=== PATIENT | male | born 1955 | race Caucasian/White ===

== ENCOUNTER 2016-12-01 09:31 | Emergency (ER) | payer BC, OTHER ==
--- NOTE | 2016-12-01 11:10 | ED Physician Documentation ---
History of Present Illness - Stated complaint Stated Complaint: RT KNEE PAIN - Chief complaint Chief Complaint: Ext Problem - History obtained from History obtained from: Patient - History of Present Illness Timing: How many weeks ago (3) - Additonal information Additional information: 61 y/o male with increased pain in his right knee over the past 3 weeks. He had an injection done [facility] about 2 weeks ago and the pain is now worse. He feels like the injection did not work. He feels that he never got relief. He is having much worse pain than usual and cannot bear weight. Review of Systems Constitutional: denies: Fever, Chills, Myalgias, Fatigue, Sweats Eyes: denies: Decreased vision Ears: denies: Ear pain Nose: denies: Congestion Throat: denies: Sore throat Cardiac: denies: Chest pain / pressure Respiratory: denies: Cough GI: denies: Vomiting : denies: Dysuria, Frequency Skin: denies: Rash Musculoskeletal: reports: Joint pain, Pain with weight bearing. denies: Neck pain, Back pain, Extremity pain Neurologic: denies: Generalized weakness, Focal weakness, Numbness PD PAST MEDICAL HISTORY - Present Medications Home Medications: Ambulatory Orders Medication Instructions Recorded Confirmed Aspirin 81 mg PO DAILY 12/01/16 12/01/16 Atorvastatin [Lipitor] 40 mg PO DAILY 12/01/16 12/01/16 Clopidogrel [Plavix] 75 mg PO DAILY 12/01/16 12/01/16 HYDROcod/ACETAM 5/325 [Renwick 5/325] 1 - 2 ea PO Q6H PRN #15 tablet 12/01/16 Hydrochlorothiazide 25 mg PO DAILY 12/01/16 12/01/16 Isosorbide Mononitrate [Isosorbide 60 mg PO DAILY 12/01/16 12/01/16 Mononitrate ER] Lisinopril 10 mg PO DAILY 12/01/16 12/01/16 Metoprolol Tartrate 100 mg PO DAILY 12/01/16 12/01/16 Nitroglycerin 0.4 12/01/16 Ranolazine [Ranexa] 1,000 mg PO BID 12/01/16 12/01/16 amLODIPine [Norvasc] 2.5 mg PO DAILY 12/01/16 12/01/16 - Allergies Allergies/Adverse Reactions: Allergies Allergy/AdvReac Type Severity Reaction Status Date / Time Tetanus Vaccines and Toxoid Allergy Unknown Verified 12/01/16 09:44 PD ED PE NORMAL - Vitals Vital signs reviewed: Yes (hypertensive) - General General: Alert and oriented X 3, No acute distress, Well developed/nourished - HEENT HEENT: Atraumatic, PERRL - Respiratory Respiratory: No respiratory distress - Derm Derm: Normal color, Warm and dry, No rash - Extremities Extremities: No deformity, No edema, Other (There is a small palpable effusion to the right knee. There is pain to moving the knee through a ROM. The ligaments are stable to testing and the distal N/V is intact. ) - Neuro Neuro: Alert and oriented X 3, No motor deficit, No sensory deficit, Normal speech - Psych Psych: Normal mood, Normal affect Results - Vitals Vitals: Vital Signs - 24 hr 12/01/16 12/01/16 09:35 13:31 Temperature 37 C 36.6 C Heart Rate 89 59 L Respiratory 16 18 Rate Blood Pressure 144/85 H 114/73 O2 Saturation 96 97 Oxygen O2 Source Room air - Labs Labs: Microbiology 12/01/16 11:50 Body Fluid Culture - Preliminary Synovial Fluid Laboratory Tests 12/01/16 11:50 Fluid Source SYNOVIAL Fluid Color YELLOW Fluid Clarity CLEAR Fluid WBC 427 Fluid RBC 662 Fluid Neutrophils % 6 Fluid Lymphocytes % 92 Fluid Monocytes % 2 Fld Mesothelial Cell % Not Reportable Fluid Crystals NONE SEEN - Rads (name of study) right knee Radiology: Prelim report reviewed (Impression: Mild osteoarthritis. Moderate joint effusion. Kellgren Srinivas grade 2.), EMP read indepedently, See rad report Procedures - Arthrocentesis Joint: Knee Preparation: Sterile prep and drape Anesthesia: Lidocaine 2% Fluid: Clear, Sent for cell count, Sent for crystals, Sent for culture, Fluid obtained - cc (10), Sent for gram stain Aftercare: Dressing applied, No complications, Other (instilled kenalog 40mg into joint space), Patient tolerated well PD MEDICAL DECISION MAKING - ED course Complexity details: reviewed old records, reviewed results, re-evaluated patient , considered differential, d/w patient ED course: 61 y/o male with osteoarthritis of the right knee has developed increased pain and has a joint effusion. The pain was out of proportion to expected and the joint was tapped to reveal what appears to be reactive inflammation. The effusion was tapped and kenalog was instilled. The patient was given an injection of toradal IM and we will provide a small amount of pain medication and he has a follow up with his doctor about this tomorrow. Departure - Departure Disposition: 01 Home, Self Care Clinical Impression: Reactive arthritis of knee Condition: Stable Instructions: ED Degenerative Joint Disease Follow-Up: Venancio Parks MD [Primary Care Provider] - Prescriptions: HYDROcod/ACETAM 5/325 [Renwick 5/325] 1 - 2 ea PO Q6H PRN #15 tablet PRN Reason: Pain Comments: Follow up with your doctor at the [facility] tomorrow as planned. Discharge Date/Time: 12/01/16 13:37
--- NOTE | 2016-12-01 11:13 | XRAY Report ---
EXAM: RIGHT KNEE RADIOGRAPHY EXAM DATE: 12/01/2016 10:32 AM. CLINICAL HISTORY: Pain worsening ? effusion. COMPARISON: None. TECHNIQUE: 4 views. FINDINGS: Bones: Normal. No fractures or bone lesions. Joints: Mild osteoarthritis, with small osteophytes. Moderate effusion. Soft Tissues: Normal. No soft tissue swelling. IMPRESSION: Mild osteoarthritis. Moderate joint effusion. Kellgren Srinivas Grade 2. Kellgren and Srinivas classification of osteoarthritis: Grade 0: no radiographic features of osteoarthritis are present Grade 1: doubtful joint space narrowing (JSN) and possible osteophytic lipping Grade 2: definite osteophytes and possible JSN on anteroposterior weight-bearing radiograph Grade 3: multiple osteophytes, definite JSN, sclerosis, possible bony deformity Grade 4: large osteophytes, marked JSN, severe sclerosis and definite bony deformity [facility] Referring Provider Line: [phone] SITE ID: [id number]
[2016-12-01] MEDS ORDERED: LIDOCAINE 2% 10 ML MDV ONE (11:25)
[2016-12-01] MEDS ORDERED: TRIAMCINOLONE 40 MG/ML VIAL ONE (11:45)
[2016-12-01] MEDS ORDERED: TRIAMCINOLONE 40 MG/ML VIAL IM STA (11:56)
[2016-12-01 12:33] LABS: CC,BF RBC 662 /mm^3
[2016-12-01] MEDS ORDERED: KETOROLAC 60 MG/2 ML VIAL IM STA (12:45)
[2016-12-01 12:54] LABS: BF CLARITY CLEAR; BF COLOR YELLOW
[2016-12-01] MEDS ORDERED: KETOROLAC 60 MG/2 ML VIAL ONE (13:04)
[2016-12-01 13:21] LABS: LYMPHOCYTES %,BODY FLUID 92; MONOCYTES %,BODY FLUID 2 %; NEUTROPHILS %, BF 6 %
[2016-12-01 13:31] VITALS: BP 114/73
== END 2016-12-01 13:37 | disposition home or self-care (01) ==
LOC: ED 09:31
DX: M02.361 Reiter's disease, right knee (principal); Z79.82 Long term (current) use of aspirin
CPT/HCPCS: 20610; 87070; 87205; 89051; 89060; 96372; 99283

== ENCOUNTER 2017-02-20 08:13 | Outpatient (CLI) | payer BC ==
--- NOTE | 2017-02-20 14:57 | MRI Report ---
EXAM: RIGHT KNEE MRI WITHOUT CONTRAST EXAM DATE: 02/20/2017 09:26 AM. CLINICAL HISTORY: Right knee internal derangement. Osteoarthritis. COMPARISON: Right knee radiography from 12/01/2016. TECHNIQUE: Multiplanar, multisequence T1-weighted and fluid-sensitive sequences of the knee without c ontrast. Other: None. FINDINGS: Bones and Articular Cartilage: Grade 4 chondromalacia, slight cortical irregularity, and subcortical marrow edema at the medial femoral condyle and medial tibial plateau. Osteophytes at the femoral cond yles, tibial plateau, and patella. Grade 2-3 chondromalacia at the posterior aspect of the lateral ti bial plateau. Grade 3-4 chondromalacia at the lateral patellar facet. Subchondral osteophyte at the i nferior aspect of the medial trochlear facet. There is slight lateral subluxation of the patella by a pproximately 6 mm. Borderline patella shavon is present. Medial Meniscus: Degenerative free edge fraying at the entire medial meniscus. Horizontal and oblique tears within the posterior horn. Horizontal tear at the medial meniscal body. The medial meniscal shad dy is extruded medially from the medial joint compartment. Lateral Meniscus: The lateral meniscus is intact. Cruciate Ligaments: The anterior and posterior cruciate ligaments are intact. Collateral Ligaments: The medial collateral and lateral collateral ligamentous structures are intact. Tendons: The quadriceps, patellar, semimembranosus, and popliteus tendons are unremarkable. Musculature: No edema or fatty atrophy. Other: Small joint effusion. Small Suh's cyst. No loose bodies. The medial and lateral retinacula are intact. There is focal magnetic susceptibility artifact within the subcutaneous tissue anterior t o the patella, which is probably due to a small metallic foreign body. The infrapatellar fat pad is u nremarkable. Mild subcutaneous edema anterior to the patellar tendon. IMPRESSION: 1. Tricompartmental osteoarthritis which is most significant at the medial compartment. 2. Slight lateral subluxation of the patella by approximately 6 mm. Borderline patella shavon. 3. Degenerative free edge fraying of the entire medial meniscus. Horizontal and oblique tears within the posterior horn and horizontal tear at the body of the medial meniscus. The medial meniscal body i s extruded medially from the medial joint compartment. 4. Small joint effusion and Suh's cyst. 5. Artifact within the subcutaneous tissue anterior to the patella which is likely due to a small met allic foreign body. [facility] MUSCULOSKELETAL RADIOLOGY SECTION Referring Provider Line: [phone] SITE ID: [id number]
== END 2017-02-20 08:14 | disposition home or self-care (01) ==
LOC: DI 08:13
PROVIDERS: ATTEND Family Medicine
DX: M17.11 Unilateral primary osteoarthritis, right knee (principal); S83.241A Other tear of medial meniscus, current injury, right knee, initial encounter; M25.461 Effusion, right knee; M71.21 Synovial cyst of popliteal space [Baker], right knee

== ENCOUNTER 2017-04-27 09:34 | Day surgery (SDC) | payer BC ==
[~2017-04-27 09:34] MED LIST: BRIMONIDINE 0.2% OPHTH DROPS 5 ML ONE; TIMOLOL 0.5% OPHTH DROPS ONE
[2017-04-27] MEDS ORDERED: BRIMONIDINE 0.2% OPHTH DROPS 5 ML ONE (10:27)
[2017-04-27] MEDS ORDERED: KETOROLAC 0.45% OPHTH DROPS ONE (10:27)
[2017-04-27] MEDS ORDERED: PHENYLEPHRINE 2.5% OPHTH 2 ML DROPS ONE (10:27)
[2017-04-27] MEDS ORDERED: CYCLOPENTOLATE 1% OPHTH DROPS 2 ML ONE (10:27)
[2017-04-27] MEDS ORDERED: PROPARACAINE 0.5% OPHTH DROPS 15 ML ONE (10:28)
[2017-04-27] MEDS ORDERED: LACTATED RINGERS 500 ML IV ONE ×2 (10:36→11:33)
[2017-04-27] MEDS ORDERED: PHENYLEPHRINE 2.5% OPHTH 2 ML DROPS OPTH ONE (10:40)
[2017-04-27] MEDS ORDERED: PROPARACAINE 0.5% OPHTH DROPS 15 ML OPTH ONE ×2 (10:40→11:21)
[2017-04-27] MEDS ORDERED: KETOROLAC 0.45% OPHTH DROPS OPTH ONE (10:40)
[2017-04-27] MEDS ORDERED: CYCLOPENTOLATE 1% OPHTH DROPS 2 ML OPTH ONE (10:40)
[2017-04-27] MEDS ORDERED: BRIMONIDINE 0.2% OPHTH DROPS 5 ML OPTH ONE (11:20)
[2017-04-27] MEDS ORDERED: MIDAZOLAM 2 MG/2 ML VIAL IVP ONE (11:20)
[2017-04-27] MEDS ORDERED: CHONDR SULF/HYALURONATE SYRINGE IO ONE (11:21)
[2017-04-27] MEDS ORDERED: BSS/LIDOCAINE/EPINEPHRINE 1 ML SYRINGE IO ONE (11:21)
[2017-04-27] MEDS ORDERED: TIMOLOL 0.5% OPHTH DROPS OPTH ONE (11:21)
[2017-04-27] MEDS ORDERED: EPINEPHrine 1 MG/ML AMP IVP ONE (11:21)
[2017-04-27] MEDS ORDERED: TRIAMCIN/MOXIFLOX/VANCO 1 ML VIAL IO ONE (11:22)
[2017-04-27 11:35] VITALS: BP 126/76
--- NOTE | 2017-04-27 11:49 | OPERATIVE REPORT ---
DATE OF SURGERY: 04/27/2017 00:00:00 PREOPERATIVE DIAGNOSIS: Visually significant cataract, left eye. This was his first cataract surgery. POSTOPERATIVE DIAGNOSIS: Visually significant cataract, left eye. This was his first cataract surgery . NAME OF PROCEDURE: Phacoemulsification posterior chamber intraocular lens implant, left eye. SURGEON: Alvaro Hardwick MD. ANESTHESIA: Monitored anesthesia care. COMPLICATIONS: None. OPERATIVE INDICATIONS: This is a 61-year-old man with progressive vision loss in the left eye due to 2+ nuclear sclerotic, 2+ cortical and 2+ posterior subcapsular cataract. Best corrected visual acuity was 20/40 with glare to hand motion in the left eye. Indications for surgery were overall decrease i n vision, difficulty seeing words on a computer screen, difficulty reading, difficulty seeing words a nd game scores on TV, difficulty seeing street signs, difficulty with glare and bright lights in abou t any situation, and difficulty tracking a golf ball. He was consented at length concerning the risks and benefits of cataract surgery, after which he expressed a desire to proceed with surgery. OPERATIVE PROCEDURE: The patient was taken into OR #2 and placed under monitored anesthesia care. A s urgical time-out was conducted confirming the correct patient, correct procedure and correct surgical site. He was given topical anesthesia and then prepped and draped in the usual sterile fashion. The eye was entered at the 6- and 3 o'clock positions. Intracameral Shugarcaine was injected into the ant erior chamber followed by Viscoat. A continuous tear curvilinear capsulorrhexis was performed. The nu cleus was hydrodissected and phacoemulsified. Cortex was evacuated using automated infusion aspiratio n. Provisc was injected in the capsular bag and a 21.0 diopter intraocular lens was inserted into the bag. Approximately 0.7 mL of a mixture of triamcinolone, moxifloxacin, and vancomycin was injected s ubconjunctivally in the superior quadrant for infection and inflammation prophylaxis. I/A was used to evacuate the viscoelastic materials. The eye was inflated to a physiologic pressure using balanced s alt solution and found to be watertight. The patient was taken from the operating room in good condit ion and given postoperative instructions. JOB #: [id number] EXT JOB #:[id number]
== END 2017-04-27 09:35 | disposition home or self-care (01) ==
LOC: SDS 09:34
PROVIDERS: ATTEND Ophthalmology
PROC: 08RK3JZ Replacement of Left Lens with Synthetic Substitute, Percutaneous Approach (ICD-10-PCS; principal; 2017-04-27 11:00)
DX: H25.812 Combined forms of age-related cataract, left eye (principal); E78.00 Pure hypercholesterolemia, unspecified; I25.10 Atherosclerotic heart disease of native coronary artery without angina pectoris; M32.9 Systemic lupus erythematosus, unspecified; Z79.82 Long term (current) use of aspirin; Z95.1 Presence of aortocoronary bypass graft
CPT/HCPCS: 66984; A9270; J3490; V2632

== ENCOUNTER 2017-06-08 09:28 | Day surgery (SDC) | payer BC ==
[~2017-06-08 09:28] MED LIST changes: +CYCLOPENTOLATE 1% OPHTH DROPS 2 ML ONE; +KETOROLAC 0.45% OPHTH DROPS ONE; +PHENYLEPHRINE 2.5% OPHTH 2 ML DROPS ONE; +PROPARACAINE 0.5% OPHTH DROPS 15 ML ONE
[2017-06-08] MEDS: LACTATED RINGERS 500 ML IV ONE (10:17)
[2017-06-08] MEDS ORDERED: MIDAZOLAM 2 MG/2 ML VIAL IVP ONE (10:50)
[2017-06-08] MEDS: PROPARACAINE 0.5% OPHTH DROPS 15 ML RIGHTEYE ONE (10:53)
[2017-06-08] MEDS: CHONDR SULF/HYALURONATE SYRINGE IO ONE (10:54)
[2017-06-08] MEDS: BRIMONIDINE 0.2% OPHTH DROPS 5 ML OPTH ONE (10:54)
[2017-06-08] MEDS: EPINEPHrine 1 MG/ML AMP IVP ONE (10:54)
[2017-06-08] MEDS: TIMOLOL 0.5% OPHTH DROPS OPTH ONE (10:55)
[2017-06-08] MEDS: BSS/LIDOCAINE/EPINEPHRINE 1 ML SYRINGE IO ONE ×2 (10:55)
[2017-06-08] MEDS: TRIAMCIN/MOXIFLOX/VANCO 1 ML VIAL IO ONE ×2 (10:55)
[2017-06-08 11:12] VITALS: BP 140/79
--- NOTE | 2017-06-08 11:30 | OPERATIVE REPORT ---
DATE OF SURGERY: 06/08/2017 00:00:00 PREOPERATIVE DIAGNOSIS: Visually significant cataract, right eye. Cataract surgery was performed on the left 04/27/2017. POSTOPERATIVE DIAGNOSIS: Visually significant cataract, right eye. Cataract surgery was performed on the left 04/27/2017. NAME OF PROCEDURE: Phacoemulsification posterior chamber intraocular lens implant, right eye. SURGEON: Alvaro Hardwick MD ANESTHESIA: Monitored anesthesia care. COMPLICATIONS: None. OPERATIVE INDICATIONS: This is a 61-year-old man with progressive vision loss in the right eye due to 2+ nuclear sclerotic, 2+ cortical and 2+ posterior subcapsular cataract. Best corrected visual acuity was 20/30 with glare to 20/ 100 in the right eye. Indications for surgery were overall decrease in vision, difficulty seeing words on a computer screen, difficulty reading, difficulty seeing words and game scores on TV, difficulty seeing street signs, difficulty with glare or bright lights in any situation, difficulty tracking a golf ball and decreased acuity with firearms. He was consented at length concerning the risks and benefits of cataract surgery after which he expressed a desire to proceed with surgery. OPERATIVE PROCEDURE: The patient was taken into OR #3 and placed under monitored anesthesia care. A surgical time-out was conducted confirming correct patient, correct procedure and correct surgical site. Patient was given topical anesthesia and then prepped and draped in the usual sterile fashion. The eye was entered at the 12 and 9 o'clock positions. Intracameral Shugarcaine was injected into the anterior chamber followed by Viscoat. A continuous tear curvilinear capsulorrhexis was performed. The nucleus was hydrodissected and phacoemulsified. The cortex was evacuated using automated infusion aspiration. Provisc was injected in the capsular bag and a 21.0 diopter intraocular lens was inserted into the bag. Approximately 0.7 mL with mixture of triamcinolone, moxifloxacin, and vancomycin was injected subconjunctivally in the superior quadrant for infection and inflammation prophylaxis. I/A was used to evacuate the viscoelastic materials. The eye was inflated to physiologic pressure using balanced salt solution and found to be watertight. The patient was taken from the operating room in good condition and given postoperative instructions. JOB #: [id number] EXT JOB #:[id number] [facility]
== END 2017-06-08 09:29 | disposition home or self-care (01) ==
LOC: SDS 09:28
PROVIDERS: ATTEND Ophthalmology
PROC: 08RJ3JZ Replacement of Right Lens with Synthetic Substitute, Percutaneous Approach (ICD-10-PCS; principal; 2017-06-08 11:00)
DX: H25.811 Combined forms of age-related cataract, right eye (principal); G47.30 Sleep apnea, unspecified; I25.10 Atherosclerotic heart disease of native coronary artery without angina pectoris; Z87.891 Personal history of nicotine dependence; R06.02 Shortness of breath; E78.00 Pure hypercholesterolemia, unspecified
CPT/HCPCS: 66984; A9270; J3490; V2632

== ENCOUNTER 2021-12-24 09:26 | Day surgery (SDC) | payer OTHER ==
[2021-12-24] MEDS ORDERED: LACTATED RINGERS 1,000 ML IV ONE (09:48)
--- NOTE | 2021-12-24 10:23 | ANESTHESIA ---
Pre-Anesthesia VS, & Labs - Diagnosis positive FIT test - Procedure colonoscopy Vital Signs: Temp Pulse Resp BP Pulse Ox 36.3 C L 65 16 131/76 H 92 12/24/21 09:49 12/24/21 09:49 12/24/21 09:49 12/24/21 09:49 12/24/21 09:49 Height: 6 ft Weight (kg): 104.7 kg Body Mass Index: 31.3 BMI Classification: Obese - NPO >8 hours Home Medications and Allergies Home Medications: Ambulatory Orders Cholecalciferol [Vitamin D3] 50 mcg PO BID 12/17/21 Rosuvastatin Calcium [Crestor] 40 mg PO QPM 12/17/21 Aspirin 81 mg PO DAILY 12/01/16 Isosorbide Mononitrate [Isosorbide Mononitrate ER] 180 mg PO DAILY 12/01/16 Metoprolol Tartrate 100 mg PO BID 12/01/16 Nitroglycerin 0.4 mg SL PRN PRN 12/01/16 Ranolazine [Ranexa] 1,000 mg PO BID 12/01/16 amLODIPine [Norvasc] 5 mg PO DAILY 12/01/16 hydroCHLOROthiazide [Hydrochlorothiazide] 25 mg PO DAILY 12/01/16 lisinopriL [Lisinopril] 10 mg PO BID 12/01/16 Cholecalciferol [Vitamin D3] 50 mcg PO BID 12/17/21 Rosuvastatin Calcium [Crestor] 40 mg PO QPM 12/17/21 Allergies/Adverse Reactions: Allergies Allergy/AdvReac Type Severity Reaction Status Date / Time Tetanus Vaccines and Toxoid Allergy Anaphylaxis Verified 06/07/17 13:27 Anes History & Medical History - Anesthetic History Anesthesia Complications: reports: No previous complications - Medical History Cardiovascular: reports: Hypertension, High cholesterol, Coronary artery disease, Angina Pulmonary: reports: Sleep apnea, CPAP use Gastrointestinal: reports: None Urinary: reports: None Neuro: reports: TIA Musculoskeletal: reports: Osteoarthritis, Rheumatoid arthritis Endocrine/Autoimmune: reports: Systemic lupus erythematosus Blood Disorders: reports: None Skin: reports: None Smoking Status: Former smoker (quit 22 years ago) Psychosocial: reports: No issues indicated History of Cancer?: No - Surgical History General: reports: Colonoscopy Eyes Ears Nose Throat (EENT): reports: Tonsil/Adenoidectomy Cardiothoracic: reports: CABG, Cardiac catheterization, Other Orthopedic: reports: Knee replacement, Spine surgery, Other Results - EKG Results EKG Comparison: Reviewed EKG - Echo Results Echo Results: Report reviewed Exam General: Alert, Oriented x3, Cooperative, No acute distress Dental: Poor dentition (front chipped) Mouth Openin Fingerbreadth Neck Mobility: Normal Mallampati classification: II Thyromental Distance: 4-6 cm Mental/Cognitive Status: Alert/Oriented X3, Normal for patient Plan Anesthesia Type: General, Total IV Consent for Procedure(s) Verified and Reviewed: Yes Code Status: Attempt Resuscitation ASA classification: 3-Severe systemic disease Is this case an emergency?: No
[2021-12-24] MEDS ORDERED: PROPOFOL 500 MG/50 ML 500 MG/50 ML VIAL ONE (10:36)
[2021-12-24] MEDS ORDERED: LACTATED RINGERS 500 ML IV ONE (11:47)
--- NOTE | 2021-12-24 11:56 | ANESTHESIA POST OP EVALUATION ---
Anesthesia Post Eval - Post Anesthesia Eval Vitals: Last Vital Signs Temp 36.9 C 12/24/21 11:44 Pulse 66 12/24/21 11:44 Resp 18 12/24/21 11:44 BP 138/118 H 12/24/21 11:44 Pulse Ox 92 12/24/21 11:44 CV Function Including HR & BP: Stable Pain Control: Satisfactory Nausea & Vomiting: Negative Mental Status: Baseline Respiratory Status: Airway Patent Hydration Status: Satisfactory Anesthesia Complications: None
[2021-12-24 12:13] VITALS: BP 114/69
== END 2021-12-24 09:27 | disposition home or self-care (01) ==
LOC: SDS 09:26
PROVIDERS: ATTEND Surgery
PROC: 0DBM8ZZ Excision of Descending Colon, Via Natural or Artificial Opening Endoscopic (ICD-10-PCS; principal; 2021-12-24 10:45)
DX: R19.5 Other fecal abnormalities (principal); D12.4 Benign neoplasm of descending colon; K57.30 Diverticulosis of large intestine without perforation or abscess without bleeding; Q27.39 Arteriovenous malformation, other site; G47.33 Obstructive sleep apnea (adult) (pediatric); I25.10 Atherosclerotic heart disease of native coronary artery without angina pectoris; E66.9 Obesity, unspecified; Z68.31 Body mass index [BMI] 31.0-31.9, adult; Z87.891 Personal history of nicotine dependence
CPT/HCPCS: 45380; 93005; J7120

== ENCOUNTER 2022-10-20 09:56 | Outpatient (CLI) | payer OTHER | END 2022-10-20 09:57 | disposition short-term general hospital (02) | LOC: EMS 09:56 | DX: I47.20 Ventricular tachycardia, unspecified (principal); R55 Syncope and collapse; Z95.0 Presence of cardiac pacemaker; Z79.01 Long term (current) use of anticoagulants | CPT/HCPCS: A0425; A0429 ==